=== PATIENT | female | born 1955 | race Caucasian/White ===

== ENCOUNTER 2023-03-04 16:31 | Outpatient (OUT) | payer MEDICARE, OTHER, SELFPAY ==
[2023-03-04 16:57] LABS: Clarity Urine CLEAR (CLEAR); Color Urine ORANGE (YELLOW)
[2023-03-04 16:59] LABS: Glucose Urine UA COLOR INTERFERENCE mg/dL (NEGATIVE); Protein Urine COLOR INTERFERENCE mg/dL (NEG/TRACE); Specific Gravity Urine 1.025 (1.005-1.025); pH Urine COLOR INTERFERENCE (5.0-9.0)
[2023-03-04 17:00] LABS: Bilirubin Urine COLOR INTERFERENCE (NEGATIVE); Blood Urine COLOR INTERFERENCE (NEGATIVE); Ketones Urine COLOR INTERFERENCE mg/dL (NEGATIVE); Leukocyte Esterase Urine COLOR INTERFERENCE (NEGATIVE); Nitrite Urine COLOR INTERFERENCE (NEGATIVE); Urobilinogen Urine COLOR INTERFERENCE EU/dL (0.2-1.0)
== END 2023-03-04 16:32 | disposition home or self-care (01) ==
LOC: LAB 16:35
PROVIDERS: PCP Family Medicine; Visit Provider Family Medicine
DX: R39.9 Unspecified symptoms and signs involving the genitourinary system (principal)
CPT/HCPCS: 81003; 87086

== ENCOUNTER 2024-03-12 10:59 | Emergency (ER) | payer MEDICARE, OTHER, SELFPAY ==
[2024-03-12] VITALS (15 sets, daily range): BP systolic 148–169; BP diastolic 60–82; PULSE 65–87; TEMP 37.1; O2SAT 96–99; BMI 30.7
--- NOTE | 2024-03-12 11:43 | XR_ITS ---
[address] [address] Patient Name: DENA WOLFE MRN: [id number] date: 1955 Sex: F Assigned Patient Location: ER Current Patient Location: ER Accession/Order Number: [id number] Exam Date: 03/12/2024 13:30 Report Date: 03/12/2024 14:14 At the request of: NAIMA DUCKWORTH Procedure: XR chest 2V EXAM: XR chest 2V HISTORY: sob Covid positive COMPARISON: 06/07/2019 TECHNIQUE: PA, lateral chest x-ray FINDINGS: Lungs clear without infiltrate or edema. Normal heart size and mediastinal contour. No pleural effusion or pneumothorax. Spinal stimulator leads mid thoracic spinal canal similar to previous. XR/XR chest 2V IMPRESSION: No acute disease, clear lungs. Electronically authenticated by: ESTHER CISNEROS Date: 03/12/2024 14:14
--- NOTE | 2024-03-12 13:20 | ECG_ITS ---
[facility] Test Date: 2024-03-12 Pat Name: DENA WOLFE Department: Room: - Gender: Female Client Engagement Manager: : 1955 Requested By: MARY PAIGE Order Number: [id number] Reading MD: RO SHINE Measurements Intervals [place] Rate: 65 P: 57 CA: 116 QRS: 65 QRSD: 80 T: 45 QT: 384 QTc: 395 Interpretive Statements 1100 Sinus rhythm 2210 Short CA interval 9150 abnormal ECG Compared to ECG 11/19/2021 09:56:42 Short CA interval now present Electronically Signed On 03-13-2024 6:58:30 EDT by RO SHINE
[2024-03-12 13:47] LABS: Alanine Aminotransferase 45 U/L (14-59); Albumin Globulin Ratio 1.2; Albumin Level 3.7 g/dL (3.4-5.0); Alkaline Phosphatase 39 U/L (46-116); Anion Gap 13.7; Aspartate Amino Transferase 33 U/L (15-37); BUN Creatinine Ratio 22.4; Bilirubin Total 0.6 mg/dL (0.2-1.0); Calcium 9.4 mg/dL (8.5-10.1); Chloride 103 mmol/L (98-107); Estimated GFR (African America >60 (>=60); Estimated GFR (Non-African Ame >60 (>=60); Globulin 3.2 g/dL; Glucose 84 mg/dL (74-106); Potassium 3.7 mmol/L (3.5-5.1); Sodium 140 mmol/L (136-145); Total Protein 6.9 g/dL (6.4-8.2)
[2024-03-12 14:09] LABS: Basophils Absolute Auto 0.1 10^3/uL (0.0-0.1); Basophils Percent Auto 0.8 % (0.2-2.0); Eosinophils Absolute Auto 0.1 10^3/uL (0.0-0.7); Eosinophils Percent Auto 0.9 % (0.9-7.0); Hematocrit 41.3 % (36.0-48.0); Hemoglobin 13.4 g/dL (12.0-16.0); Immature Granulocytes Abs Auto 0.12 10^3/uL (0.00-0.03); Immature Granulocytes Pct Auto 0.9 % (0.0-0.5); Lymphocytes Absolute Auto 3.2 10^3/uL (1.2-3.8); Mean Corpuscular HGB Conc 32.4 g/dL (29.9-35.2); Mean Corpuscular Hemoglobin 29.8 pg (26.7-34.0); Mean Corpuscular Volume 91.8 fL (81.0-99.0); Mean Platelet Volume 9.9 fL (9.5-13.5); Monocytes Absolute Auto 1.1 10^3/uL (0.3-0.8); Monocytes Percent Auto 8.4 % (1.7-12.0); Neutrophils Absolute Auto 8.2 10^3/uL (1.4-6.5); Platelet Count 286 10^3/uL (150-450); Red Cell Distribution Width 12.4 % (11.0-15.0); White Blood Count 12.7 10^3/uL (4.0-11.0)
[2024-03-12 14:22] LABS: INR 0.97; Prothrombin Time 10.3 sec (9.0-11.6)
[2024-03-12] MEDS: AZITHROMYCIN 250 MG TABLET 500 MG PO (15:05)
[2024-03-12] MEDS: IPRATROPIUM/ALBUTEROL SULFATE 3 ML AMPUL.NEB IH (15:06)
--- NOTE | 2024-03-12 15:26 | ED.GENADUL1 ---
HPI HPI - General Adult General Chief complaint: Upper Respiratory Infection Stated complaint: COVID POSITIVE SOB Time Seen by Provider: 03/12/24 11:43 Source: patient Mode of arrival: walk-in Limitations: no limitations History of Present Illness HPI narrative: The patient presented to us after she was diagnosed with COVID-19 almost 5 days ago she already finished her Paxlovid and some steroids she was getting for her right knee pain Patient coming to the ER because she still having some thick sputum and she thinks her appetite not back to normal. No fever no chills Related Data Home Medications ?Medication ?Instructions ?Recorded ?Confirmed alprazolam 1 mg tablet 1 mg PO DAILY PRN anxiety 03/12/24 03/12/24 fluticasone propionate 50 2 spray intranasal DAILY 03/12/24 03/12/24 mcg/actuation nasal spray,suspension leflunomide 20 mg tablet 20 mg PO DAILY 03/12/24 03/12/24 levothyroxine 50 mcg tablet 50 mcg PO DAILY 03/12/24 03/12/24 lidocaine 5 % topical patch 1 patch topical Q24H 03/12/24 03/12/24 prednisone 10 mg tablet mg 03/12/24 prednisone 20 mg tablet mg 03/12/24 sertraline 50 mg tablet 50 mg PO Q24H 03/12/24 03/12/24 tizanidine 2 mg tablet 2 mg PO TID PRN muscle spasticity 03/12/24 03/12/24 tramadol 50 mg tablet 50 mg PO Q12H PRN pain 03/12/24 03/12/24 Previous Rx's ?Medication ?Instructions ?Recorded albuterol sulfate 90 mcg/actuation 2 inh inhalation Q6H PRN shortness 03/12/24 breath activated powder inhaler of breath #1 ea azithromycin 250 mg tablet See Rx Instructions PO .COMPLEX #6 03/12/24 (Zithromax Z-Saud) tabs Allergies Allergy/AdvReac Type Severity Reaction Status Date / Time No Known Drug Allergies Allergy Verified 03/12/24 11:10 Opioid HPI Opioid Management Most Recent Opioid Data: No Data to Display Review of Systems ROS Status of ROS 10 or more systems reviewed and unremarkable except as noted in history and below Exam Narrative Exam Narrative: Nurses notes and vital signs reviewed and patient is not hypoxic. General: Well-appearing and in no apparent distress. Skin: Warm, dry, no pallor noted. No rash. Head: Normocephalic, atraumatic. Neck: Supple, non-tender. Eye: Pupils are equal, round and EOMI. No scleral icterus. Ears, Nose, Mouth, and Throat: TM are clear, no nasal mucosal hypertrophy. Oral mucosa is moist, no posterior oropharynx erythema, uvula is mid-line Cardiovascular: Regular Rate and Rhythm without murmur, gallop or rub. Respiratory: No accessory muscle use or respiratory distress. Lungs are clear to auscultation, no wheezing, rales or rhonchi Chest Wall: no tenderness Back: No midline thoracic or lumbar vertebral tenderness. No CVA tenderness Musculoskeletal: normal ROM, no calf or popliteal tenderness, no lower extremity edema/swelling GI: Abdomen is soft, non-distended. Normal bowel sounds. No masses appreciated. No tenderness to palpation. No rebound, guarding, or rigidity noted. Neurological: A&O x4. No cranial nerve dysfunction observed. No truncal ataxia. Moves all extremities. Sensation intact. Psychiatric: Cooperative and interactive. Normal mood and affect. Constitutional Vital Signs, click to edit/add: Last Vital Signs Temp 98.7 F 03/12/24 11:03 Pulse 79 03/12/24 15:07 Resp 20 03/12/24 14:50 BP 159/73 H 03/12/24 14:00 Pulse Ox 96 03/12/24 14:50 O2 Del Method Room Air 03/12/24 15:07 Course Vital Signs Vital signs: Vital Signs Temperature 98.7 F 03/12/24 11:03 Pulse Rate 79 03/12/24 11:03 Respiratory Rate 20 03/12/24 11:03 Blood Pressure 169/70 H 03/12/24 11:03 Pulse Oximetry 99 03/12/24 11:03 Oxygen Delivery Method Room Air 03/12/24 11:03 Temperature 98.7 F 03/12/24 11:03 Pulse Rate 79 03/12/24 15:07 Respiratory Rate 20 03/12/24 14:50 Blood Pressure 159/73 H 03/12/24 14:00 Pulse Oximetry 96 03/12/24 14:50 Oxygen Delivery Method Room Air 03/12/24 15:07 Medical Decision Making MDM Narrative Medical decision making narrative: The patient CBC and chemistry showed no acute pathology and the patient x-ray also of the chest showed no acute pathology but with her presentation and the mild leukocytosis that the CBC The patient will be started antibiotic to cover for underlying bacterial on top of viral infection Patient also provided with albuterol in the ER discharged home with her albuterol inhaler as she needed refill The patient is to follow up with primary care physician in next 2-3 days or to return to the emergency department should any of the signs or symptoms worsen or new symptoms develop. The patient agrees with the following Diagnosis and Treatment plan and the patient will be discharged home. Lab Data Labs: Lab Results 03/12/24 03/12/24 Range/Units 13:11 14:04 WBC 12.7 H (4.0-11.0) 10^3/uL RBC 4.50 (4.20-5.40) 10^6/uL Hgb 13.4 (12.0-16.0) g/dL Hct 41.3 (36.0-48.0) % MCV 91.8 (81.0-99.0) fL MCH 29.8 (26.7-34.0) pg MCHC 32.4 (29.9-35.2) g/dL RDW 12.4 (11.0-15.0) % Plt Count 286 (150-450) 10^3/uL MPV 9.9 (9.5-13.5) fL Neut % (Auto) 64.0 (43.0-75.0) % Lymph % (Auto) 25.0 (20.5-60.0) % [place] % (Auto) 8.4 (1.7-12.0) % Eos % (Auto) 0.9 (0.9-7.0) % Baso % (Auto) 0.8 (0.2-2.0) % Neut # (Auto) 8.2 H (1.4-6.5) 10^3/uL Lymph # (Auto) 3.2 (1.2-3.8) 10^3/uL [place] # (Auto) 1.1 H (0.3-0.8) 10^3/uL Eos # (Auto) 0.1 (0.0-0.7) 10^3/uL Baso # (Auto) 0.1 (0.0-0.1) 10^3/uL Abs Immat Gran (auto) 0.12 H (0.00-0.03) 10^3/uL Imm/Tot Granulo (auto) 0.9 H (0.0-0.5) % PT 10.3 (9.0-11.6) sec INR 0.97 Sodium 140 (136-145) mmol/L Potassium 3.7 (3.5-5.1) mmol/L Chloride 103 (98-107) mmol/L Carbon Dioxide 27.0 (21.0-32.0) mmol/L Anion Gap 13.7 BUN 17.0 (7.0-18.0) mg/dL Creatinine 0.76 (0.55-1.02) mg/dL Est GFR ( Amer) >60 (>=60) Est GFR (Non-Af Amer) >60 (>=60) BUN/Creatinine Ratio 22.4 Glucose 84 (74-106) mg/dL Calcium 9.4 (8.5-10.1) mg/dL Total Bilirubin 0.6 (0.2-1.0) mg/dL AST 33 (15-37) U/L ALT 45 (14-59) U/L Alkaline Phosphatase 39 L (46-116) U/L Troponin I High Sens 10.0 (4.0-51.3) pg/mL Total Protein 6.9 (6.4-8.2) g/dL Albumin 3.7 (3.4-5.0) g/dL Globulin 3.2 g/dL Albumin/Globulin Ratio 1.2 Discharge Plan Discharge Stand Alone Forms: Portal Instructions Chief Complaint: Upper Respiratory Infection Clinical Impression: COVID Patient Disposition: Home, Self-Care Time of Disposition Decision: 14:51 Condition: Good Prescriptions / Home Meds: New albuterol sulfate 90 mcg/actuation aerosol powdr breath activated 2 inh inhalation Q6H PRN (Reason: shortness of breath) Qty: 1 0RF azithromycin [Zithromax Z-Saud] 250 mg tablet See Rx Instructions .ROUTE .COMPLEX Qty: 6 0RF Rx Instructions: For 250 mg dose pack: take 500 mg today (day 1), then 250 mg for 4 days (days 2-5) No Action alprazolam 1 mg tablet 1 mg PO DAILY PRN (Reason: anxiety) fluticasone propionate 50 mcg/actuation spray,suspension 2 spray INTRANASAL DAILY leflunomide 20 mg tablet 20 mg PO DAILY levothyroxine 50 mcg tablet 50 mcg PO DAILY lidocaine 5 % adhesive patch,medicated 1 patch topical Q24H prednisone 10 mg tablet prednisone 20 mg tablet sertraline 50 mg tablet 50 mg PO Q24H tizanidine 2 mg tablet 2 mg PO TID PRN (Reason: muscle spasticity) tramadol 50 mg tablet 50 mg PO Q12H PRN (Reason: pain) Print Language: Cypriot Instructions: COVID-19 (Coronavirus Disease 2019) (ED) Referrals: Melinda Padron MD [Primary Care Provider] - 1 week
== END 2024-03-12 15:34 | disposition home or self-care (01) ==
PROVIDERS: Emergency Provider Emergency Medicine; PCP Family Medicine
DX: U07.1 COVID-19 (principal); R06.02 Shortness of breath
CPT/HCPCS: 36415; 71046; 80053; 84484; 85025; 85610; 93005; 94640; 99285

== ENCOUNTER 2024-12-06 12:28 | Emergency (ER) | payer MEDICARE, OTHER, SELFPAY ==
[2024-12-06 12:32] VITALS: BP 160/95; PULSE 107; TEMP 36.8; O2SAT 97; BMI 31.2
[2024-12-06] MEDS: FAMOTIDINE 20 MG TABLET PO (13:07)
[2024-12-06] MEDS: METHYLPREDNISOLONE SOD SUCC PF 40 MG/ML VIAL IM (13:07)
[2024-12-06] MEDS: KETOROLAC TROMETHAMINE 30 MG/ML VIAL IM (13:09)
--- NOTE | 2024-12-06 14:07 | ED.BACK1 ---
HPI HPI - Back Pain/Injury General Chief Complaint: Back Pain/Injury Stated Complaint: BACK PAIN Time Seen by Provider: 12/06/24 12:38 Source: patient Mode of arrival: Wheelchair Limitations: no limitations History of Present Illness HPI Narrative: The patient is coming to the ER with the back pain, she mentioned that over the last few days there was exacerbation of her chronic back pain, patient mentioned that she already follow-up with the pain management as outpatient but almost 3 days ago she was doing some work at home when apparently she overextended her spine trying to grab something in the upper shelf, and that when the pain started The patient have history of chronic back pain with history of spinal cord stimulator in addition to laminectomy as well The patient denies any incontinence of urine or stool She does take Buprenex patches and she has been using them Related Data Home Medications ?Medication ?Instructions ?Recorded ?Confirmed alprazolam 1 mg tablet 1 mg PO DAILY PRN anxiety 03/12/24 12/06/24 fluticasone propionate 50 2 spray intranasal DAILY 03/12/24 12/06/24 mcg/actuation nasal spray,suspension leflunomide 20 mg tablet 20 mg PO DAILY 03/12/24 12/06/24 levothyroxine 50 mcg tablet 50 mcg PO DAILY 03/12/24 12/06/24 lidocaine 5 % topical patch 1 patch topical Q24H 03/12/24 12/06/24 sertraline 50 mg tablet 50 mg PO Q24H 03/12/24 12/06/24 tizanidine 2 mg tablet 2 mg PO TID PRN muscle spasticity 03/12/24 12/06/24 buspirone 10 mg tablet 10 mg PO DAILY 12/06/24 12/06/24 cevimeline 30 mg capsule 30 mg PO DAILY 12/06/24 12/06/24 meloxicam 7.5 mg tablet 7.5 mg PO DAILY 12/06/24 12/06/24 Previous Rx's ?Medication ?Instructions ?Recorded albuterol sulfate 90 mcg/actuation 2 inh inhalation Q6H PRN shortness 03/12/24 breath activated powder inhaler of breath #1 ea prednisone 20 mg tablet 40 mg (2 x 20 mg) PO DAILY 5 days 12/06/24 #10 tabs Allergies Allergy/AdvReac Type Severity Reaction Status Date / Time No Known Drug Allergies Allergy Verified 03/12/24 11:10 Opioid HPI Opioid Management Most Recent Opioid Data: Last Pain Scale 15 12/06/24 13:09 12/06/24 Last NOV Pain Assessment 12/06/24 13:09 Review of Systems ROS Status of ROS 10 or more systems reviewed and unremarkable except as noted in history and below Exam Narrative Exam Narrative: Nurses notes and vital signs reviewed and patient is not hypoxic. General: Well-appearing and in no apparent distress. Skin: Warm, dry, no pallor noted. No rash. Head: Normocephalic, atraumatic. Neck: Supple, non-tender. Cardiovascular: Regular Rate and Rhythm without murmur, gallop or rub. Respiratory: No accessory muscle use or respiratory distress. Lungs are clear to auscultation, no wheezing, rales or rhonchi Chest Wall: no tenderness Back: No midline thoracic or left paraspinal muscle tenderness at the lumbar level in addition to mildly in the middle the lower lumbar,lumbar level Musculoskeletal: normal ROM, no calf or popliteal tenderness, no lower extremity edema/swelling GI: Abdomen is soft, non-distended. Normal bowel sounds. No masses appreciated. No tenderness to palpation. No rebound, guarding, or rigidity noted. Neurological: A&O x4. No cranial nerve dysfunction observed. Constitutional Vital Signs, click to edit/add: Last Vital Signs Temp 98.3 F 12/06/24 12:32 Pulse 107 H 12/06/24 12:32 Resp 18 12/06/24 12:32 BP 160/95 H 12/06/24 12:32 Pulse Ox 97 12/06/24 12:32 O2 Del Method Room Air 12/06/24 12:32 Course Vital Signs Vital signs: Vital Signs Temperature 98.3 F 12/06/24 12:32 Pulse Rate 107 H 12/06/24 12:32 Respiratory Rate 18 12/06/24 12:32 Blood Pressure 160/95 H 12/06/24 12:32 Pulse Oximetry 97 12/06/24 12:32 Oxygen Delivery Method Room Air 12/06/24 12:32 Temperature 98.3 F 12/06/24 12:32 Pulse Rate 107 H 12/06/24 12:32 Respiratory Rate 18 12/06/24 12:32 Blood Pressure 160/95 H 12/06/24 12:32 Pulse Oximetry 97 12/06/24 12:32 Oxygen Delivery Method Room Air 12/06/24 12:32 MDM - Back Pain/Injury MDM Narrative Medical decision making narrative: CT lumbar spine showed that the patient have multiple disc disease in addition to possibly T12 compression fracture that is mild in addition to chronic lumbar disc changes with mild to moderate spinal cord compression With the patient presentation and the fact that she started having more pain after overstretching the pain right now could be secondary to inflammation and causing the patient to have sciatica although she said that chronically the patient pain usually goes to the left side and it is today The patient was treated in the ER with Toradol and Solu-Medrol after which she was feeling much better The patient was discharged home with prednisone after reviewing her opiate intake and she does take Buprenex patches in addition to Xanax which puts her at risk of respiratory depression in case of any new opiate medication added Patient understand and she mentioned that she knows about alarming symptoms and she will come back in case of any withdrawal symptoms started The patient is to follow up with primary care physician in next 2-3 days or to return to the emergency department should any of the signs or symptoms worsen or new symptoms develop. The patient agrees with the following Diagnosis and Treatment plan and the patient will be discharged home. Discharge Plan Discharge Chief Complaint: Back Pain/Injury Clinical Impression: Lumbar disc disorder Patient Disposition: Home, Self-Care Time of Disposition Decision: 14:41 Condition: Good Prescriptions / Home Meds: New prednisone 20 mg tablet 40 mg PO DAILY 5 Days Qty: 10 0RF No Action alprazolam 1 mg tablet 1 mg PO DAILY PRN (Reason: anxiety) fluticasone propionate 50 mcg/actuation spray,suspension 2 spray INTRANASAL DAILY leflunomide 20 mg tablet 20 mg PO DAILY levothyroxine 50 mcg tablet 50 mcg PO DAILY lidocaine 5 % adhesive patch,medicated 1 patch topical Q24H sertraline 50 mg tablet 50 mg PO Q24H tizanidine 2 mg tablet 2 mg PO TID PRN (Reason: muscle spasticity) albuterol sulfate 90 mcg/actuation aerosol powdr breath activated 2 inh inhalation Q6H PRN (Reason: shortness of breath) Qty: 1 0RF buspirone 10 mg tablet 10 mg PO DAILY cevimeline 30 mg capsule 30 mg PO DAILY meloxicam 7.5 mg tablet 7.5 mg PO DAILY Print Language: [place] Citizen Instructions: Sciatica (ED), Degenerative Disc Disease (ED) Referrals: Melinda Padron MD [Primary Care Provider] - 1 week
== END 2024-12-06 14:54 | disposition home or self-care (01) ==
PROVIDERS: Emergency Provider Emergency Medicine; PCP Family Medicine
DX: M51.9 Unspecified thoracic, thoracolumbar and lumbosacral intervertebral disc disorder (principal)
CPT/HCPCS: 72131; 74176; 96372; 99285; J1885; J2919

== ENCOUNTER 2025-01-01 14:45 | Outpatient (OUT) | payer MEDICARE, OTHER, SELFPAY ==
[2025-01-03 11:14] LABS: QuantiFERON-TB Gold Plus Negative (Negative)
== END 2025-01-01 14:46 | disposition home or self-care (01) ==
LOC: LAB 14:45
PROVIDERS: PCP Family Medicine
DX: M05.79 Rheumatoid arthritis with rheumatoid factor of multiple sites without organ or systems involvement (principal)
CPT/HCPCS: 36415; 86480